=== PATIENT | female | born 1950 | race Two or more races ===

== ENCOUNTER 2024-02-01 20:24 | Emergency (ER) | payer OTHER ==
[~2024-02-01] VITALS: Ht 152.4 cm; Wt 74.1 kg
[2024-02-01 21:10] LABS: Basophils # (auto) 0.1 10 ^3/uL (0-0.2); Basophils % (auto) 0.7 % (0.0-2.0); Eosinophils # (auto) 0.1 10 ^3/uL (0-0.8); Eosinophils % (auto) 0.8 % (0.0-7.0); Hemoglobin 14.2 g/dL (12.2-16.2); Lymphocytes # (auto) 2.8 10 ^3/uL (0.4-5.4); Lymphocytes % (auto) 34.8 % (10.0-50.0); Mean Corpuscular Hgb Conc. 33.9 g/dL (32.0-36.0); Mean Corpuscular Volume 91.6 fL (80.0-100.0); Monocytes # (auto) 0.4 10 ^3/uL (0-1.3); Monocytes % (auto) 5.1 % (0.0-12.0); Neutrophils # (auto) 4.7 10 ^3/uL (1.6-8.6); Neutrophils % (auto) 58.6 % (37.0-80.0); Nucleated Red Blood Cells % 0.2 %; Platelet Count (auto) 298 10^3/uL (140-450); Red Blood Cells 4.59 10^6/uL (4.0-5.20); Red Cell Distribution Width 14.2 % (11.8-14.3); White Blood Cell 8.1 10^3/uL (4.4-10.8)
[2024-02-01 21:30] LABS: Alanine Aminotransferase 32 U/L (7-40); Albumin 4.5 g/dL (3.2-4.8); Alkaline Phosphatase 81 U/L (46-116); Anion Gap 8 (5-15); Aspartate Aminotransferase 22 U/L (13-40); BUN/Creatinine Ratio 25.6 (10.0-20.0); Blood Urea Nitrogen 21 mg/dL (9-23); Calcium 9.9 mg/dL (8.7-10.4); Carbon Dioxide 27 mmol/L (20-31); Chloride 110 mmol/L (98-107); Glucose 99 mg/dL (74-106); Lipase 42 U/L (12-53); Potassium 3.9 mmol/L (3.5-5.1); Sodium 145 mmol/L (136-145)
[2024-02-01 21:31] LABS: Bilirubin, Total 0.5 mg/dL (0.2-1.0); Total Protein 6.9 g/dL (5.7-8.2)
--- NOTE | 2024-02-01 21:58 | DVH ---
Exam: CT CT AB PEL WO CON-NO ORAL OR IV History: Diffuse epigastric pain Comparison Study: None available at time of dictation. Technique: Multidetector CT of the abdomen and pelvis without contrast. Axial, coronal and sagittal m ultiplanar reformats were performed by the technologist on a separate workstation. Radiation Dose Information: CT Dose: CTDI volume is 10.99 mGy. Dose-length product is 620.11 mGy*cm Findings: The lung bases are clear. Mild cardiomegaly. Subcentimeter hypodense hepatic lesion that is too small to characterize. Otherwise, liver, spleen, pancreas and adrenal glands unremarkable. Status post cholecystectomy. Bilateral parapelvic cysts with small right renal upper pole cysts. No hydronephrosis bilaterally. No renal calculi bilaterally. Visualized ureters and urinary bladder are unremarkable. Streak artifact from left hip prosthesis limits evaluation of the adjacent structures. Limited evaluation of the uter us. Mild wall thickening of the distal esophagus stomach. Small bowel loops unremarkable. Appendix is unr emarkable. Small to moderate amount of fecal material within the colon. Descending colon and sigmoid diverticulosis without diverticulitis. No evidence of intraperitoneal free air or free fluid. No evidence of aortic aneurysm. No significant lymphadenopathy. Small fat containing bilateral inguinal hernias. Tiny fat containing umbilical hernia. Left total hip replacement with streak artifact limiting evaluation of the adjacent structures. 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 Grade 1 anterolisthesis of L5 on S1 with bilateral L5 pars defect. Moder ate to severe degenerative changes of the lumbar spine. IMPRESSION: Mild wall thickening of the distal esophagus stomach which may be due to inadequate distention with p ossible mild esophagitis and gastritis respectively. Bilateral renal parapelvic cysts with small right renal cortical cysts. Left total hip replacement with streak artifact from left hip prosthesis limiting evaluation of the a djacent structures. Descending colon and sigmoid diverticulosis without diverticulitis. Subcentimeter hypodense hepatic lesion that is too small to characterize.
[2024-02-01 22:04] LABS: Urine Bacteria None Seen /hpf (None Seen)
[2024-02-01 22:22] LABS: Urine Blood TRACE /uL (Negative); Urine Clarity Clear (Clear); Urine Color Yellow (Yellow); Urine Mucus FEW (None Seen); Urine Protein, UAD TRACE (Negative); Urine Specific Gravity 1.031 (1.001-1.035); Urine Squamous Epithelial Cell FEW /hpf (<5); Urine Urobilinogen Normal (Negative); Urine WBC 12 /hpf (0 - 5); Urine pH 5.5 (5.0-9.0)
[2024-02-02] MEDS: ONDANSETRON ODT 4 MG TAB PO ONE (00:27)
[2024-02-02] MEDS: MAALOX PLUS or MAALOX 30 ML PO ONE (00:27)
[2024-02-02] MEDS: LIDOCAINE VISCOUS 2% 15ML UD PO ONE (00:27)
[2024-02-02] MEDS ORDERED: SIME80CH49 PO (00:48)
[2024-02-02] MEDS ORDERED: OMEP-335 PO (00:48)
[2024-02-02] MEDS ORDERED: BACDST PO (00:48)
--- NOTE | 2024-02-02 00:48 | ED.PDOC ---
GI ASSESSMENT HPI Comments Patient is a pleasant but morbidly obese 73-year-old female who arrives to the ED today for evaluation of upper abdominal pain for the past week. Patient states the pain has been burning a cramping and has been relatively consistent. Patient states the pain is worse after eating. Patient denies any history of intra-abdominal concerns. Patient denies any fever nausea or vomiting. Vital signs were stable on arrival. 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 History Family History Family History: Reviewed,noncontributory to illness, No family hx of Cancer, No family hx of DM, No family hx of Heart may, No family hx of HTN, No family hx ofKidney may, No family hx of Liver may, No family hx of Lung may, No family hx of Stroke Social History Smoker: Non-Smoker Alcohol: Denies ETOH Use Drugs: Denies Drug Use Lives In: Home Constitutional: denies: chills, diaphoresis, fatigue, fever, malaise, sweats, weakness, others EENTM: denies: blurred vision, double vision, ear bleeding, ear discharge, ear drainage, ear pain, ear ringing, eye pain, eye redness, hearing loss, mouth pain, mouth swelling, nasal discharge, nose bleeding, nose congestion, nose pain, photophobia, tearing, throat pain, throat swelling, voice changes, others Respiratory: denies: cough, hemoptysis, orthopnea, SOB at rest, shortness of breath, SOB with excertion, stridor, wheezing, others Cardiovascular: denies: chest pain, dizzy spells, diaphoresis, Dyspnea on exertion, edema, irregular heart beat, left arm pain, lightheadedness, palpitations, PND, syncope, others Gastrointestinal: reports: abdominal pain; denies: abdomen distended, blood streaked bowels, constipated, diarrhea, dysphagia, difficulty swallowing, hematemesis, melena, nausea, poor appetite, poor fluid intake, rectal bleeding, rectal pain, vomiting, others Genitourinary: denies: abnormal vagina bleeding, burning, dyspareunia, dysuria, flank pain, frequency, hematuria, incontinence, pain, , vagina discharge, urgency, others Neurological: denies: dizziness, fainting, headache, left sided numbness, left sided weakness, numbness, paresthesia, pre-existing deficit, right sided numbness, right sided weakness, seizure, speech problems, tingling, tremors, wea kness, others Musculoskeletal: denies: back pain, gout, joint pain, joint swelling, muscle pain, muscle stiffness, neck pain, others Integumetry: denies: bruises, change in color, change in hair/nails, dryness, l aceration, lesions, lumps, rash, wounds, others Allergic/Immunocompromised: denies: Difficulty Healing, Frequent Infections, Hives, Itching, others Hematologic/Lymphatic: denies: anemia, blood clots, easy bleeding, easy bruising, swollen glands, others Endocrine: denies: excessive hunger, excessive sweating, excessive thirst, excessive urination, flushing, intolerance to cold, intolerance to heat, unexplained weight gain, unexplained weight loss, others Psychiatric: denies: anxiety, bipolar disorder, depression, hopeless, panic disorder, schizophrenia, sleepless, suicidal, others Physical Exam General Appearance: Moderate Distress (Due to abdominal pain concerns.), Normal HEENT: Normal ENT Inspection, Pharynx Normal, TMs Normal Neck: Full Range of Motion, Non-Tender, Normal, Normal Inspection Respiratory: Chest Non-Tender, Lungs Clear, No Accessory Muscle Use, No Respiratory Distress, Normal Breath Sounds Cardiovascular: No Edema, No JVD, No Murmur, No Gallop, Normal Peripheral Pulses, Regular Rate/Rhythm Breast Exam: Deferred Gastrointestinal: Other (Diffuse epigastric tenderness to palpation. No pulsatile masses noted. No signs of trauma. Abdomen was reasonably soft.) Genitalia: Deferred Pelvic: Deferred Rectal: Deferred Extremities: No calf tenderness, Normal capillary refill, Normal inspection, Normal range of motion, Non-tender, No pedal edema Neurologic: Alert, No Motor Deficits, Normal Affect, Normal Mood, No Sensory Deficits Cerebellar Function: Normal Reflexes: Normal Skin: Dry, Normal Color, Warm Lymphatic: No Adenopathy Was a procedure done? Was a procedure done?: No GI differential Dx Differential Diagnosis: Bowel Obstruction, Cholangitis, Cholecystitis, Constipation, Diverticular disease, Gastritis/PUD, Gastroenteritis, Pancreatitis, UTI X-Ray, Labs, Meds, VS Vital Signs Date Time Temp Pulse Resp B/P (MAP) Pulse Ox O2 Delivery O2 Flow Rate FiO2 02/01/24 20:57 81 02/01/24 20:49 97.8 74 16 154/77 (102) 98 Lab Test 02/01/24 22:02 02/01/24 21:00 02/01/24 20:50 Range/Units Troponin I High Sensitivity 3 L 3 L </=34 ng/L White Blood Count 8.1 4.4-10.8 10^3/uL Red Blood Count 4.59 4.0-5.20 10^6/uL Hemoglobin 14.2 12.2-16.2 g/dL Hematocrit 42.0 36.0-46.0 % Mean Corpuscular Volume 91.6 80.0-100.0 fL Mean Corpuscular Hemoglobin 31.0 28.0-32.0 pg Mean Corpuscular Hemoglobin Concent 33.9 32.0-36.0 g/dL Red Cell Distribution Width 14.2 11.8-14.3 % Platelet Count 298 140-450 10^3/uL Mean Platelet Volume 8.0 6.9-10.8 fL Neutrophils (%) (Auto) 58.6 37.0-80.0 % Lymphocytes (%) (Auto) 34.8 10.0-50.0 % Monocytes (%) (Auto) 5.1 0.0-12.0 % Eosinophils (%) (Auto) 0.8 0.0-7.0 % Basophils (%) (Auto) 0.7 0.0-2.0 % Neutrophils # (Auto) 4.7 1.6-8.6 10 ^3/uL Lymphocytes # (Auto) 2.8 0.4-5.4 10 ^3/uL Monocytes # (Auto) 0.4 0-1.3 10 ^3/uL Eosinophils # (Auto) 0.1 0-0.8 10 ^3/uL Basophils # (Auto) 0.1 0-0.2 10 ^3/uL Nucleated Red Blood Cells 0.2 % Sodium Level 145 136-145 mmol/L Potassium Level 3.9 3.5-5.1 mmol/L Chloride Level 110 H 98-107 mmol/L Carbon Dioxide Level 27 20-31 mmol/L Anion Gap 8 5-15 Blood Urea Nitrogen 21 9-23 mg/dL Creatinine 0.82 0.550-1.02 mg/dL Glomerular Filtration Rate Calc 76 >90 mL/min BUN/Creatinine Ratio 25.6 H 10.0-20.0 Serum Glucose 99 74-106 mg/dL Calcium Level 9.9 8.7-10.4 mg/dL Total Bilirubin 0.5 0.2-1.0 mg/dL Aspartate Amino Transferase (AST) 22 13-40 U/L Alanine Aminotransferase (ALT) 32 7-40 U/L Alkaline Phosphatase 81 46-116 U/L Total Protein 6.9 5.7-8.2 g/dL Albumin 4.5 3.2-4.8 g/dL Lipase 42 12-53 U/L Urine Color Yellow Yellow Urine Clarity Clear Clear Urine pH 5.5 5.0-9.0 Urine Specific [place] 1.031 1.001-1.035 Urine Protein Trace H Negative Urine Ketones Negative Negative Urine Blood Trace H Negative /uL Urine Nitrite Negative Negative Urine Bilirubin Negative Negative Urine Urobilinogen Normal Negative mg/dL Urine Leukocyte Esterase 3+ Negative /uL Urine RBC 7 0 - 4 /hpf Urine WBC 12 0 - 5 /hpf Urine Squamous Epithelial Cells Few <5 /hpf Urine Bacteria None seen None Seen /hpf Urine Mucus Few None Seen Urine Glucose Normal Normal mg/dL Current Medications Medications (Trade) Dose Ordered Sig/Shannan Route Start Time Stop Time Status Last Admin Al Hydrox/Mg Hydrox/Simethicone (Maalox Plus) 30 ml ONCE ONCE PO 02/01/24 21:00 02/01/24 21:01 DC 02/02/24 00:27 Lidocaine HCl (Xylocaine 2% Viscous) 3 ml ONCE ONCE PO 02/01/24 21:00 02/01/24 21:01 DC 02/02/24 00:27 Ondansetron HCl (Zofran Po) 4 mg ONCE ONCE PO 02/01/24 21:00 02/01/24 21:01 DC 02/02/24 00:27 X-Ray, Labs, Meds, VS Comment All studies performed the ED were reviewed by me personally. Serum laboratories were unremarkable for any systemic process, but urine confirmed a urinary tract infection. Imaging studies revealed a mild wall thickening of the distal esophagus and stomach which is probably related to a gastritis. Patient will be given her 1st dose of antibiotics prior to discharge as well as prescription for antibiotics and medications for her gastritis. Time of 1ST Reevaluation: 00:46 Reevaluation 1ST: Improved Consultation: PCP, GI Patient Education/Counseling: Diagnosis, Treatment Family Education/Counseling: Diagnosis, Treatment Departure 1 Departure Time of Disposition: 00:46 Impression: Primary Impression: Gastritis Additional Impression: UTI (urinary tract infection) Disposition: HOME / SELF CARE / HOMELESS Condition: Stable Additional Instructions: Advised patient utilize antibiotics as directed until completion as well as additional medication as directed. Patient should follow up with primary care provider for discussions related to today's visit. e-Prescriptions Simethicone (Simethicone) 80 Mg Chw 1 TAB PO Q8HR, #20 TAB Prov: SHYLA PEREZ [facility] 02/02/24 Omeprazole (Omeprazole) 20 Mg Tab 40 MG PO DAILY for 21 Days, #42 TAB Prov: SHYLA PEREZ [facility] 02/02/24 Sulfamethoxazole W/Trimethopri (Bactrim Ds Tablet) 1 Tab Tb 1 TAB PO BID for 7 Days, #14 TAB Prov: SHYLA PEREZ [facility] 02/02/24 Discharged With: Self, Friend Critical Care Note Critical Care Time?: No Stability Stability form required: No Heart Score Heart Score: Heart Score Response (Comments) Value History N/A 0 EKG N/A 0 Age N/A 0 Risk Factors N/A 0 Troponin N/A 0 Total 0 SHYLA PEREZ [facility] Feb 02, 2024 00:48
[2024-02-02] MEDS: SULFAMETHOX W/TRIMETH(800/160MG) DS TAB PO ONE (01:12)
[2024-02-02 01:15] VITALS: BP 155/85; PULSE 66; RESP 16; O2SAT 96
--- NOTE | 2024-02-04 10:27 | ECG ---
[facility] Test Date: 2024-02-01 Test Time: 20:57:50 Pat Name: CASSIE BUCKLEY Department: ER Room: Gender: F Bag Bailer: CASSANDRA : 1950 Requested By: SHYLA PEREZ Order Number: [id number] Reading MD: Arturo Rapp Measurements Intervals [place] Rate: 81 P: 35 ME: 131 QRS: 56 QRSD: 83 T: 27 QT: 399 QTc: 464 Interpretive Statements Sinus rhythm Electronically Signed On 02-05-2024 8:19:02 PST by Arturo Rapp Please click the below link to view image of tracing.
== END 2024-02-02 01:22 | disposition home or self-care (01) ==
LOC: ER 20:36
DX: K29.70 Gastritis, unspecified, without bleeding (principal); N39.0 Urinary tract infection, site not specified; Z96.642 Presence of left artificial hip joint
CPT/HCPCS: 36415; 74176; 80053; 81001; 83690; 84484; 85025; 93005; 99284; Q0162